=== PATIENT | female | born 1965 | race Caucasian/White ===

== ENCOUNTER 2024-05-08 12:06 | Outpatient (OUT) | payer OTHER, SELFPAY ==
--- NOTE | 2024-05-08 13:30 | P.CN_ITS ---
Consult Note: HPI Data of Consult Patient: new to practice Consult date: 05/08/24 Requesting Physician: Meme Vo NP Primary Care Provider: Marilee Marquez NP Consult Narrative Reason for consult: left knee pain Narrative: 58yof who presents for evaluation. longstanding left knee pain. has tried steroids and gel injections, without lasting benefit. has been told she needs knee replacement, but needs to lose more weight. referred for consideration of genicular block. has completed physical therapy, without much benefit. has tried various meds, including gabapentin. denies adverse med side effects. cc:: CC: Meme Vo NP Review of Systems ROS Status of ROS 10 or more systems reviewed and unremark able except as noted in history and below Exam Narrative Exam Narrative: Psych-alert and oriented x 3.? Attentive and appropriate, constitutionally normal, displays normal mood and affect per situation.? There are no obvious deficits in memory, reasoning, or intellect. Extremities-lower extremities are warm with minimal edema and palpable pulses. Knee-examination of the left knee reveals tenderness to palpation over the superior, inferior, lateral, and medial aspect of the knee.? Some swelling is noted without erythema. Pain is elicited with flexion and ex tension of the knee both actively and passively.? Some grinding is noted with these motions.? There is no notable ligamental laxity or instability.? Coordination remains intact.? Gait remains antalgic. Assessment and Plan Assessment and Plan (1) Osteoarthritis of left knee: Qualifiers: Osteoarthritis type: primary Qualified Code(s): M17.12 - Unilateral primary osteoarthritis, left knee Plan 58yof who presents for evaluation. failed conservative measures, as noted. imaging reviewed, which shows left knee oa. discussed that unfortunately, while she likely would benefit from genicular blocks, her insurance does not cover this. will have her trial aquatherapy. meds reviewed. will trial lyrica 50mg tid. follow up after therapy.
== END 2024-05-08 12:07 | disposition home or self-care (01) ==
LOC: PM 12:07
PROVIDERS: PCP Nurse Practitioner; Visit Provider Nurse Practitioner
DX: M17.12 Unilateral primary osteoarthritis, left knee (principal)
CPT/HCPCS: G0463